=== PATIENT | female | born 1985 | race Hispanic/Latino ===

== ENCOUNTER 2017-07-26 10:52 | Emergency (ER) | payer BC ==
[2017-07-26] MEDS: Lactated Ringer's 1,000 ML IV SCH ×2 (11:45→12:40)
[2017-07-26 11:47] VITALS: BMI 25.3
[2017-07-26 12:23] LABS: BASO % 0.2 % (0.0-2.0); EOS % 0.8 % (0.0-4.0); HEMOGLOBIN 11.9 g/dL (12.0-16.0); LYMPH % 16.7 % (20.0-40.0); MEAN CELL VOLUME 84.7 fl (81.0-99.0); MEAN CORPUSCULAR HGB CONC 34.2 g/dL (33.0-37.0); MEAN PLATELET VOLUME 8.3 fl (7.2-11.7); MONO # 0.4 K/uL (0.0-0.8); NEUT # 4.5 K/uL (1.8-7.0); NEUT % 76.3 % (50.0-75.0); NRBC % 0.1 % (0.0-0.0); RBC 4.1 Mil/uL (3.80-5.20); RED CELL DISTRIBUTION WIDTH 13.6 % (11.5-14.5); WHITE BLOOD COUNT 5.9 K/uL (4.8-10.8)
[2017-07-26] MEDS ORDERED: Lactated Ringer's 1,000 ML IV SCH (12:30)
[2017-07-26 12:46] LABS: AMYLASE 87 U/L (30-110); CALCIUM 8.8 mg/dL (8.4-10.2); GFR AFRICAN-AMERICAN > 60; GFR NON-AFRICAN AMERICAN > 60; LIPASE 129 U/L (23-300)
[2017-07-26 12:50] LABS: ALB/GLOB RATIO 1.1 (1.0-2.1); ALBUMIN 3.7 g/dL (3.5-5.0); ALT/SGPT 17 U/L (9-52); AST/SGOT 46 U/L (14-36); BLOOD UREA NITROGEN 6 mg/dl (7-17)
[2017-07-26 13:28] LABS: URINE COLOR YELLOW (YELLOW)
[2017-07-26 13:29] LABS: URINE BILIRUBIN NEGATIVE (NEGATIVE); URINE BLOOD NEGATIVE (NEGATIVE); URINE GLUCOSE (UA) NEGATIVE (Normal); URINE LEUKOCYTE ESTERASE TRACE Leu/uL (Negative); URINE PROTEIN 30 mg/dL (NEGATIVE); URINE UROBILINOGEN 0.2 mg/dL (0.2-1.0)
[2017-07-26 13:50] LABS: SQUAMOUS EPITHIAL 10 /hpf (0-5); URINE BACTERIA MOD (<OCC); URINE CLARITY SLIGHT-CLOUDY (Clear)
--- NOTE | 2017-07-26 16:27 | OBHP ---
Datetime: 07/26/2017 12:28 IP Adm Impression: , intrauterine ; No Active Labor IP Chief Complaint Other: Diarrhea IP Admit Plan: Observation/Evaluation Admit Comment, IP Provider: 32 y/o F at 27.2 weeks GA presents to [facility] c/o diarrhea that began 4 days ago. Diarrhe ais watery, non-bloody, non-mucous and 5-8 episodes a day. Pt reports eating a sm all table-spoon of "raw meat" a few hours previous to symtoms onset. Raw meat is described as beef, p ork and phillips combination, obtained from [employer]. Pt reports associated nausea and abdominal crampin g pain that aggravates with PO intake. No vomiting reported. Nobody is sick at home and no recent tra anel. No CTX, VB or LOF. FM present. Pt denies fever, headache, CP, SOB, vomting, urinary symptoms or rash. All systems reviewed and negative except as above. Allergies: Penicillin, does not recall reaction during childhood. Meds: PNV PN Care: Dr Braden at [facility]. OBHx: PMHx: denied PSHx: denied FHx: NC SHx: No tobacco, alcohol or rec drugs. A/P 32 y/o F with IUP at 27.1 weeks GA, with diarrhea --IV Fluids, 2 boluses of 1 liter LR. --CBC, CMP, amylase, lipase and U/A ordered. F/U results --FHT continous monitoring. --Observation. --Pt educated and reinforced on "NOT recommended food during ." Pt reported understanding . Case discussed with Dr Bryan, OB customer relations assistant Le[place] PGY-1 ADDENDUM: Pt re-evaluated and examined by bedside. Blood analysis and U/A were unremarkable. Pt feeling a bi t better, less nauseous but still having non-bloody diarrhea. Vital signs remained WNL. --Lab results reviewed with pt. Pt educated on the most probable benign course of illness. --Will discharge home. --Pt instructed to increase fluid intake. --F/U with PCP within 5 days, return if NO improvement. Case discussed with Dr Bryan, OB customer relations assistant. GTolentino PGY-1. Addendum: I Examined Patient at Presentation. Patient Observed at OB ED for a Couple Hours. All Lab Work wit hin Normal Limits. Patient's Vital Signs Stable. Maternal well-being and well-being reassuring at this time. Patient discharged to home. Randi Pelvic Type - PN: Adequate Extremities - PN: Normal Back - PN: Normal Heart - PN: Normal Neurologic - PN: Normal HEENT - PN: Normal General - PN: Normal FHR - Baseline A Provider: 140 Comments, ACOG Physical Exam: -HEENT: No ictericia or pallor in b/l conjunctiva. -Oropharynx: mildly dry mucous membranes, no erythema. -Abdomen: Soft, gravid, BS +, tender on upper quadrants. No guarding or rebound tenderness. -EXT: no edema or cyanosis. EGA AdmitDate IP: 27.6 Vital Signs Provider: Reviewed IP Chief Complaint: Maternal discomfort NICHD Variability Prov Fetus A: Moderate 6-25bpm NICHD Accel Fetus A IP Provider: 15X15 FHR Category Provider Fetus A: Category I Genitourinary Exam: Normal
[2017-07-26 18:41] VITALS: BP 110/66; PULSE 83; RESP 18; TEMP 98; O2SAT 99
== END 2017-07-26 14:30 | disposition home or self-care (01) ==
LOC: H.EROB2 10:52
DX: O26.92 Pregnancy related conditions, unspecified, second trimester (principal); R19.7 Diarrhea, unspecified; Z3A.27 27 weeks gestation of pregnancy
CPT/HCPCS: 80053; 81003; 82150; 83690; 85025; 96360; 96361; 99283; J7120

== ENCOUNTER 2017-09-04 21:27 | Emergency (ER) | payer BC ==
[2017-09-04 22:12] VITALS: BMI 26.1
[2017-09-04] MEDS ORDERED: Lactated Ringer's 1,000 ML IV SCH (22:15)
[2017-09-05] MEDS ORDERED: Lactated Ringer's 1,000 ML IV SCH (00:15)
[2017-09-05 00:21] LABS: SQUAMOUS EPITHIAL 4 /hpf (0-5); URINE BACTERIA MOD (<OCC); URINE BILIRUBIN NEGATIVE (NEGATIVE); URINE BLOOD NEGATIVE (NEGATIVE); URINE CLARITY CLOUDY (Clear); URINE COLOR YELLOW (YELLOW); URINE GLUCOSE (UA) NEG (Normal); URINE LEUKOCYTE ESTERASE NEG Leu/uL (Negative); URINE PROTEIN NEGATIVE (NEGATIVE); URINE UROBILINOGEN 0.2-1.0 mg/dL (0.2-1.0)
[2017-09-05 01:49] LABS: SPECIMEN COMMENT CLOUDY
[2017-09-05 06:16] VITALS: BP 109/61; PULSE 90; RESP 19; TEMP 98.8; O2SAT 99
--- NOTE | 2017-09-07 12:09 | OBHP ---
Datetime: 09/04/2017 22:16 IP Adm Impression: , intrauterine ; No Active Labor; Intact Membranes IP Chief Complaint Other: abdominal and low back pain IP Admit Plan: Observation/Evaluation; Discharge home Admit Comment, IP Provider: 32 y/o F at 33.4 weeks gestational age presents to [facility] c/o abdomin al pain and lower back pain. Denies contractions, vaginal bleeding, loss of fluid. Reports good movement. Recently finished course of antibitotics for UTI; denies urinary symptoms at this time. Denies fever, chills, chest pain, dyspnea, nausea, vomiting. care: Dr. Braden; has next apt on 09/09. OB Hx: ; full term deliveries; denies complications with this . PMHx: denies PSHx: denies FHx: noncontributory SHx: No tobacco, alcohol or rec drugs. Allergies: PENICILLIN Meds: finished antibiotics yesterday for UTI SSE: cervix appears closed SVE: closed, soft, high FHR reactive, + accels toco: irritability A/P Monitor FHR and on toco 1L fluid bolus Pt seen with Dr. Pia [email or web address]. Attending Note: Pt was seen and examined with resident and the plan and management was dictated by me. Pt was given labor instructions. She was asked to return with vaginal bleeding, LOF or increasin g pain. Pt to see Dr Braden within the week. Yan Palacio. Extremities - PN: Normal Abdomen - PN: Normal Lungs - PN: Normal Neurologic - PN: Normal HEENT - PN: Normal General - PN: Normal EGA AdmitDate IP: 33.4 IP Chief Complaint: Maternal discomfort; Other Dilatation, Provider: 0 Effacement, Provider: 20 Station, Provider: -3 Genitourinary Exam: Normal
== END 2017-09-05 02:05 | disposition home or self-care (01) ==
LOC: H.EROB2 21:27
DX: O47.03 False labor before 37 completed weeks of gestation, third trimester (principal); Z3A.33 33 weeks gestation of pregnancy; O26.93 Pregnancy related conditions, unspecified, third trimester; R10.2 Pelvic and perineal pain; M54.5 Low back pain
CPT/HCPCS: 81003; 82731; 96360; 99283; J7120

== ENCOUNTER 2017-10-13 12:50 | Inpatient (IN) | payer BC ==
[2017-10-13 13:28] VITALS: BMI 26.9
--- NOTE | 2017-10-13 13:41 | OBADHP ---
Datetime: 10/13/2017 12:45 IP Adm Impression Other: Latent phase of labor Admit Comment, IP Provider: [id number] IUP at 39w c/o decreased FM all day. She went to PMD and check ed 2-3cm...She drank juice and only felt hiccups. No FM afterwards. Occ XT this morning. 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 she understands...will admit to L_D; disucssed conditoin, labor , delivey and spoke to Dr Braden - agreed Pelvic Type - PN: Adequate Extremities - PN: Normal Abdomen - PN: Normal Back - PN: Normal Heart - PN: Normal Thyroid - PN: Normal Neurologic - PN: Normal HEENT - PN: Normal General - PN: Normal Presentation-Admit: Vertex FHR - Baseline A Provider: 140 IP Hx Assessment: The History has been Reviewed and is Current IP Chief Complaint: Uterine contractions; Decreased movement NICHD Variability Prov Fetus A: Moderate 6-25bpm NICHD Accel Fetus A IP Provider: 15X15 FHR Category Provider Fetus A: Category I NICHD Decel Fetus A IP Provider: None Dilatation, Provider: 2-3 Genitourinary Exam: Normal DTRs - PN: Normal EGA AdmitDate IP: 38.6 IP Adm Impression: Term, intrauterine ; No Active Labor; Intact Membranes IP Admit Plan: Admit to unit; Initiate labor protocol Datetime: 09/04/2017 22:16 IP Chief Complaint Other: abdominal and low back pain Lungs - PN: Normal Effacement, Provider: 20 Station, Provider: -3 Datetime: 07/26/2017 12:28 Comments, ACOG Physical Exam: -HEENT: No ictericia or pallor in b/l conjunctiva. -Oropharynx: mildly dry mucous membranes, no erythema. -Abdomen: Soft, gravid, BS +, tender on upper quadrants. No guarding or rebound tenderness. -EXT: no edema or cyanosis. Vital Signs Provider: Reviewed
[2017-10-13 15:22] LABS: BASO % 0.2 % (0.0-2.0); EOS % 0.6 % (0.0-4.0); HEMOGLOBIN 11.4 g/dL (12.0-16.0); LYMPH # 1.4 K/uL (1.0-4.3); MEAN CORPUSCULAR HEMOGLOBIN 25.6 pg (27.0-31.0); MEAN CORPUSCULAR HGB CONC 32.5 g/dL (33.0-37.0); MEAN PLATELET VOLUME 8.4 fl (7.2-11.7); MONO # 0.8 K/uL (0.0-0.8); MONO % 8.7 % (0.0-10.0); NEUT # 6.5 K/uL (1.8-7.0); NEUT % 74.5 % (50.0-75.0); NRBC % 0.1 % (0.0-0.0); RBC 4.44 Mil/uL (3.80-5.20); RED CELL DISTRIBUTION WIDTH 16.5 % (11.5-14.5); WHITE BLOOD COUNT 8.8 K/uL (4.8-10.8)
[2017-10-13 15:26] LABS: MEAN CELL VOLUME 78.9 fl (81.0-99.0)
--- NOTE | 2017-10-13 16:51 | OBPN ---
Datetime: 10/13/2017 16:40 IP Progress Plan Other: Pt declined IP Progress Impression Other: latnet phase of labor IP Progress Impression: Reassuring heart rate IP Informed Consent Obtain: Vaginal Delivery IP Progress Plan: Continue present management; Augmentation; Anticipate Vaginal Delivery Pool Provider: Negative Membranes, Provider: Intact FHR - Baseline A Provider: 130 Presentation-Admit: Vertex IP Progress Note Comment: Notified to check Dr Braden's patient for possible augmentation. Latent phase of labor PLAN: disucssion about augmentation...she does not want any meds/AROM at thsi time. wants to try nipple stim NICHD Accel Fetus A IP Provider: 15X15 FHR Category Provider Fetus A: Category I NICHD Variability Prov Fetus A: Moderate 6-25bpm Dilatation, Provider: 2-3 Effacement, Provider: 50 Station, Provider: -2 NICHD Decel Fetus A IP Provider: None Datetime: 07/26/2017 12:28 Vital Signs Provider: Reviewed
[2017-10-13] MEDS: Lactated Ringer's 1,000 ML IV SCH ×2 (17:15→17:50)
[2017-10-13] MEDS ORDERED: Lactated Ringer's 1,000 ML IV SCH (17:30)
[2017-10-13] MEDS ORDERED: Nalbuphine HCL 10 mg/ml Ampule IVP PRN (18:35)
[2017-10-13] MEDS ORDERED: Fentanyl/Bupivacaine HCl 250 ML EPI ONE (20:06)
[2017-10-13] MEDS ORDERED: Bupivacaine HCl 0.5% PF (30 ml) Inj ONE (21:42)
--- NOTE | 2017-10-13 23:27 | OBDS ---
MATERNAL INFORMATION Estimated Blood Loss (ml): 250 Maternal Complications: None Provider Comments: Delivered a living baby boy appears LGA cried spontaneously two loops of cord dmitriy und neck loose undone prior to full delivery, 9/9, AF clear Placenta complete and intact Uterus contracted well no cervical vaginal or perinear lacerations noted Tolerated procedure well no compli cations LABOR SUMMARY EDC: 10/21/2017 00:00 No. Babies in Womb: 1 LABOR INFORMATION Reason for Induction: Not Applicable Group B Beta Strep: Negative Steroids Given: None Reason Steroids Not Administered: Not Applicable MEMBRANES Membranes Rupture Method: Spontaneous Amniotic Fluid Color: Clear VAGINAL DELIVERY Episiotomy: None Laceration Extension: N/A Laceration Type: None Laceration Repair: Not Applicable Sponge Count Correct: Yes Sharps Count Correct: N/A Count Comment: sponge and lap pads count correct and verified by tech CSECTION DELIVERY Primary Indication: N/A Secondary Indication: N/A CSection Incision: N/A Uterine Closure: N/A PRESENTATION/POSITION BABY A Presentation: Cephalic Cephalic Presentation: Vertex
[2017-10-13] MEDS ORDERED: Oxycodone/Acetaminophen 5/325 mg Tab PO PRN (23:31)
[2017-10-14] MEDS ORDERED: Oxycodone/Acetaminophen 5/325 mg Tab PO PRN (01:53)
--- NOTE | 2017-10-14 07:59 | OBPPN ---
Datetime: 10/14/2017 07:51 PP Pain Prov: Within normal limits PP Pain Prov comment: Denies SOB, chest pains or leg pains PP Nausea Prov: Denies PP Flatus Prov: Yes PP Nausea Prov comment: denies c/f PP Breasts Prov: Normal PP Lungs Prov: Normal PP Abdomen/Uterus Prov: Abnormal PP Lochia Prov: Normal PP Vulva/Perineum Prov: Normal PP CVA Tenderness Prov: Normal PP Extremities Prov: Normal PP C/S Incision Prov: Not Applicable PP Progress Prov: Normal PP Comments Phys Exam Prov: breast NE, NT; Abd soft ND, fundus firm below the umb, NT; Ext no calf t enderness PP Impression Prov: Normal progression PP Plan Prov: Continue present management PP Progress Note Prov: CBC this am OOB and ambulation Continue PP care IP PP Procedures: None
[2017-10-14 08:50] LABS: HEMOGLOBIN 10.7 g/dL (12.0-16.0); MEAN CELL VOLUME 78.2 fl (81.0-99.0); MEAN CORPUSCULAR HEMOGLOBIN 25.9 pg (27.0-31.0); MEAN CORPUSCULAR HGB CONC 33.1 g/dL (33.0-37.0); RBC 4.14 Mil/uL (3.80-5.20); RED CELL DISTRIBUTION WIDTH 16.3 % (11.5-14.5)
[2017-10-15 02:27] LABS: SQUAMOUS EPITHIAL 1 /hpf (0-5); URINE BILIRUBIN NEGATIVE (NEGATIVE); URINE BLOOD LARGE (NEGATIVE); URINE CLARITY CLOUDY (Clear); URINE COLOR YELLOW (YELLOW); URINE GLUCOSE (UA) NEG (Normal); URINE LEUKOCYTE ESTERASE MOD Leu/uL (Negative); URINE PROTEIN 30 mg/dL (NEGATIVE); URINE UROBILINOGEN 0.2-1.0 mg/dL (0.2-1.0)
[2017-10-15 06:36] LABS: HEMOGLOBIN 9.7 g/dL (12.0-16.0); MEAN CORPUSCULAR HEMOGLOBIN 25.3 pg (27.0-31.0); RBC 3.83 Mil/uL (3.80-5.20); RED CELL DISTRIBUTION WIDTH 16.5 % (11.5-14.5); WHITE BLOOD COUNT 12.2 K/uL (4.8-10.8)
--- NOTE | 2017-10-15 13:00 | OBPPN ---
Datetime: 10/15/2017 12:53 PP Pain Prov: Abnormal PP Pain Prov comment: fever last night and chills still this am PP Nausea Prov: Denies PP Flatus Prov: Yes PP Nausea Prov comment: feels slightly weak PP Breasts Prov: Normal PP Lungs Prov: Normal PP Abdomen/Uterus Prov: Abnormal PP Lochia Prov: Normal PP Vulva/Perineum Prov: Normal PP CVA Tenderness Prov: Abnormal PP Extremities Prov: Normal PP C/S Incision Prov: Not Applicable PP Progress Prov: Normal PP Comments Phys Exam Prov: breast not engorged NT; Abd soft not distended fundus firm below the umb , NT ; bilateral CVA tenderness Ext no calf tenderness PP Plan Prov: Antibiotic therapy PP Impression Other Prov: maternal fever possible pyelo vs UTI / mild anemia PP Plan Other Prov: repeat CBC PP Progress Note Prov: Increased po fluids and continue IV antibiotics and OOB and ambulation Monito r temp IP PP Procedures: Antibiotics Vital Signs Provider PP: Reviewed
[2017-10-16 09:32] LABS: ALB/GLOB RATIO 0.9 (1.0-2.1); ALBUMIN 3.2 g/dL (3.5-5.0); ALT/SGPT 19 U/L (9-52); AST/SGOT 19 U/L (14-36); BLOOD UREA NITROGEN 5 mg/dl (7-17); CALCIUM 8.8 mg/dL (8.4-10.2); GFR AFRICAN-AMERICAN > 60; GFR NON-AFRICAN AMERICAN > 60
--- NOTE | 2017-10-16 10:14 | US ---
PROCEDURE: Ultrasound of the Kidneys HISTORY: pyelonephritis COMPARISON: None available. TECHNIQUE: Sonogram of the kidneys. FINDINGS: RIGHT KIDNEY: Measures: 11.4 x 6.4 x 5.0 cm. Normal in size, contour and echogenicity. No stone, solid mass lesion or hydronephrosis visualized. LEFT KIDNEY: Measures: 12.3 x 5.1 x 4.7 cm. Normal in size, contour and echogenicity. No stone, solid mass lesion or hydronephrosis visualized. OTHER FINDINGS: None. IMPRESSION: Unremarkable renal sonogram.
--- NOTE | 2017-10-16 14:54 | CP.PCM.PN ---
Subjective - Date & Time of Evaluation Date of Evaluation: 10/16/17 Time of Evaluation: 14:49 - Subjective Subjective: i d note have switched from gentamicin to tobramycin as may cover more resistant gram negatives if has temp overnight will consider switch to cipro Objective - Vital Signs/Intake and Output Vital Signs (last 24 hours): Temp Pulse Resp BP Pulse Ox 102.6 F H 100 H 16 118/74 100 10/16/17 01:57 10/13/17 16:02 10/13/17 16:02 10/13/17 16:02 10/13/17 16:02 - Medications Medications: Current Medications Acetaminophen (Tylenol 325mg Tab) 650 mg PO Q6 PRN PRN Reason: Fever >100.4 F Last Admin: 10/16/17 01:57 Dose: 650 mg Docusate Sodium (Colace) 100 mg PO BID MARY Last Admin: 10/16/17 08:50 Dose: 100 mg Clindamycin Phosphate 900 mg/ (Sodium Chloride) 106 mls @ 106 mls/hr IVPB Q8 MARY PRN Reason: Protocol Last Admin: 10/16/17 10:38 Dose: 106 mls/hr Tobramycin Sulfate 60 mg/ (Sodium Chloride) 101.5 mls @ 100 mls/hr IV Q8 MARY PRN Reason: Protocol Ibuprofen (Motrin Tab) 600 mg PO Q6 PRN PRN Reason: Pain, Mild (1-3) Last Admin: 10/16/17 08:54 Dose: 600 mg Oxycodone/Acetaminophen (Percocet 5/325 Mg Tab) 1 tab PO Q4 PRN PRN Reason: Pain, moderate (4-7) Stop: 10/16/17 23:32 Last Admin: 10/14/17 09:10 Dose: 1 tab - Labs Labs: 10/15/17 05:45 10/16/17 09:12
[2017-10-16] MEDS: Tobramycin inj 60 MG in Sodium Chloride 0.9% 100 ML IV SCH (17:52)
[2017-10-17] MEDS: Tobramycin inj 60 MG in Sodium Chloride 0.9% 100 ML IV SCH ×3 (02:21→17:12)
--- NOTE | 2017-10-17 08:46 | OBPPN ---
Datetime: 10/17/2017 08:36 PP Pain Prov: Within normal limits PP Pain Prov comment: denies SOB, chest or leg pains PP Nausea Prov: Denies PP Flatus Prov: Yes PP Nausea Prov comment: no C/F today Afebrile all nighty PP Flatus Prov comment: voiding well no dysuria PP Breasts Prov: Normal PP Lungs Prov: Normal PP Abdomen/Uterus Prov: Abnormal PP Lochia Prov: Normal PP Vulva/Perineum Prov: Normal PP CVA Tenderness Prov: Normal PP Extremities Prov: Normal PP C/S Incision Prov: Not Applicable PP Progress Prov: Normal PP Comments Phys Exam Prov: Breast not engorged NT breast feeding; adb soft NT not distended fundus firm below the umb NT, no CVA tenderness today Ext no calf tenderness or edema PP Impression Prov: Increased temperature PP Plan Prov: Continue present management PP Impression Other Prov: pyelonephitis/ maternal fever improved/anemia PP Progress Note Prov: will continue IV antibiotics and monitor temp IP PP Procedures: Antibiotics Vital Signs Provider PP: Reviewed
[2017-10-17 10:29] LABS: BASO % 0.1 % (0.0-2.0); EOS # 0.1 K/uL (0.0-0.7); EOS % 0.7 % (0.0-4.0); HEMOGLOBIN 10.9 g/dL (12.0-16.0); LYMPH % 12.4 % (20.0-40.0); MEAN CELL VOLUME 78.6 fl (81.0-99.0); MEAN CORPUSCULAR HEMOGLOBIN 25.9 pg (27.0-31.0); MEAN CORPUSCULAR HGB CONC 32.9 g/dL (33.0-37.0); MEAN PLATELET VOLUME 8.3 fl (7.2-11.7); MONO # 0.7 K/uL (0.0-0.8); MONO % 8.2 % (0.0-10.0); NEUT # 6.6 K/uL (1.8-7.0); NEUT % 78.6 % (50.0-75.0); RBC 4.21 Mil/uL (3.80-5.20); RED CELL DISTRIBUTION WIDTH 16.9 % (11.5-14.5); WHITE BLOOD COUNT 8.4 K/uL (4.8-10.8)
[2017-10-17 10:59] LABS: ALB/GLOB RATIO 0.9 (1.0-2.1); ALBUMIN 3.4 g/dL (3.5-5.0); ALT/SGPT 30 U/L (9-52); AST/SGOT 23 U/L (14-36); BLOOD UREA NITROGEN 7 mg/dl (7-17); CALCIUM 8.9 mg/dL (8.4-10.2); GFR AFRICAN-AMERICAN > 60; GFR NON-AFRICAN AMERICAN > 60
[2017-10-18] MEDS: Tobramycin inj 60 MG in Sodium Chloride 0.9% 100 ML IV SCH ×4 (01:05→16:01)
--- NOTE | 2017-10-18 10:49 | OBPPN ---
Datetime: 10/18/2017 10:36 PP Pain Prov: Within normal limits PP Pain Prov comment: No SOB, chest or leg pains PP Nausea Prov: Denies PP Flatus Prov: Yes PP Nausea Prov comment: Denies C/F PP Flatus Prov comment: no dysuria or frequency PP BM Prov comment: voiding well PP Breasts Prov: Normal PP Lungs Prov: Normal PP Abdomen/Uterus Prov: Abnormal PP Lochia Prov: Normal PP Vulva/Perineum Prov: Normal PP CVA Tenderness Prov: Normal PP Extremities Prov: Normal PP C/S Incision Prov: Not Applicable PP Progress Prov: Normal PP Comments Phys Exam Prov: Breast NE, NT, breast feeding; Abd soft nd, fundus firm below the umb NT , no CVA tenderness Ext no calf tenderness. PP Plan Prov: Discharge PP Impression Other Prov: S/p ; PP pyelonephritis improved ; maternal fever improved PP Progress Note Prov: Afebrile for over 24 hrs and improved condition D/C home on po Cipro and foll ow up in office 1 wk IP PP Procedures: None Vital Signs Provider PP: Reviewed
--- NOTE | 2017-10-18 10:54 | OBDCSUM ---
Datetime: 10/18/2017 10:48 Discharged to, Provider: Home Follow up at, Provider: Dr Braden Disch Instr Activity: Bedrest; May be up to bathroom; May be up for meals; May Shower Disch Instr Diet: Regular Discharge Instructions, Provider: Specific instructions as noted Discharge Diagnosis, Provider: Term Delivered Discharge Time: 10/18/2017 10:48 Follow up in weeks, Provider: 1 wk Contraception discussed, Prov: Yes Disch Activity Restrictions: No exercising; No lifting; No driving; Minimize walking; Minimize stair -climbing; No sexual activity; Nothing in vagina - [place], tampons, douche Discharge Comment, Provider: Rx for Cipro 500mg bid for 10 days; Increased po fluids Pelvic rest Discharge Diagnosis Prov Other: maternal fever; pyelonephitis, Contraception after Delivery: Undecided
[2017-10-18 23:09] VITALS: BP 105/58; PULSE 92; RESP 20; TEMP 98.8; O2SAT 98
== END 2017-10-18 19:05 | disposition home or self-care (01) | DRG 774 ==
LOC: H.EROB2 12:50 → H.EROB 12:51 → H.L&D 13:31 → H.EROB2 14:12 → H.OB/GYN 10-14 01:20
PROVIDERS: ADMIT Specialist; ATTEND Specialist
PROC: 10E0XZZ Delivery of Products of Conception, External Approach (ICD-10-PCS; principal; 2017-10-13)
PROC: 4A1HXCZ Monitoring of Products of Conception, Cardiac Rate, External Approach (ICD-10-PCS; 2017-10-13)
DX: O36.8130 Decreased fetal movements, third trimester, not applicable or unspecified (principal); O75.3 Other infection during labor; N12 Tubulo-interstitial nephritis, not specified as acute or chronic; O75.2 Pyrexia during labor, not elsewhere classified; O36.63X0 Maternal care for excessive fetal growth, third trimester, not applicable or unspecified; O69.81X0 Labor and delivery complicated by cord around neck, without compression, not applicable or unspecified; Z37.0 Single live birth; Z3A.39 39 weeks gestation of pregnancy; Z88.0 Allergy status to penicillin; Z86.19 Personal history of other infectious and parasitic diseases